=== PATIENT | female | born 1985 | race Caucasian/White ===

== ENCOUNTER 2017-03-11 16:12 | Emergency (ER) | payer BC ==
[2017-03-11 18:12] VITALS: BP 142/64
--- NOTE | 2017-03-11 18:52 | ED ---
Throat Pain/Nasal Congestion - HPI Summary HPI Summary: 31 yr old with complaint of sinus congestion, pain in maxillary sinuses, fever, chills, and has felt not well for almost three weeks. Fever just started. Her nasal drainage was yellow green. She also has pressure and pain in the ears. She also has myalgias. No other complaints. - History of Current Complaint Chief Complaint: UCGeneralIllness Time Seen by Provider: 03/11/17 18:10 - Allergies/Home Medications Allergies/Adverse Reactions: Allergies Allergy/AdvReac Type Severity Reaction Status Date / Time No Known Allergies Allergy Verified 03/11/17 18:12 Home Medications: Home Medications Acetaminophen TAB* [Tylenol TAB*] 325 mg PO Q4H PRN 03/11/17 [History Confirmed 03/11/17] PMH/Surg Hx/FS Hx/Imm Hx Previously Healthy: Yes Infectious Disease History: No Infectious Disease History: Denies: Traveled Outside the [place] in Last 30 Days - Family History Known Family History: Positive: None - Social History Occupation: Employed Full-time Alcohol Use: Weekly Substance Use Type: Reports: None Smoking Status (MU): Never Smoked Tobacco Review of Systems Positive: Fever, Chills Positive: Ear Ache, Nasal Discharge Positive: Cough. Negative: Shortness Of Breath Negative: Headache, Weakness, Paresthesia, Numbness All Other Systems Reviewed And Are Negative: Yes Physical Exam Triage Information Reviewed: Yes Vital Signs On Initial Exam: Initial Vitals Temp Pulse Resp BP Pulse Ox 101.5 F 97 16 142/64 97 03/11/17 18:08 03/11/17 18:08 03/11/17 18:08 03/11/17 18:08 03/11/17 18:08 Vital Signs Reviewed: Yes Appearance: Positive: Well-Appearing, No Pain Distress Skin: Positive: Warm, Skin Color Reflects Adequate Perfusion Head/Face: Positive: Normal Head/Face Inspection Eyes: Positive: EOMI, JOSE ENT: Positive: Pharynx normal, Nasal congestion, TMs normal, Sinus tenderness - bilateral maxillary tenderness Neck: Positive: Nontender Respiratory/Lung Sounds: Positive: Clear to Auscultation, Breath Sounds Present Cardiovascular: Positive: RRR. Negative: Murmur Abdomen Description: Positive: Nontender Musculoskeletal: Positive: Strength/ROM Intact Neurological: Positive: Sensory/Motor Intact, Alert, Oriented to Person Place, Time, CN Intact II-III, Normal Gait, Speech Normal Psychiatric: Positive: Normal - Entriken Coma Scale Best Eye Response: 4 - Spontaneous Best Motor Response: 6 - Obeys Commands Best Verbal Response: 5 - Oriented Diagnostics - Vital Signs Vital Signs Temp Pulse Resp BP Pulse Ox 03/11/17 18:08 101.5 F 97 16 142/64 97 - Laboratory Lab Results: Lab Results 03/11/17 Range/Units 18:17 Influenza A (Rapid) Negative (Negative) Influenza B (Rapid) Negative (Negative) Lab Statement: Any lab studies that have been ordered have been reviewed, and results considered in the medical decision making process. EENT Course/Dx - Course Course Of Treatment: 31 yr old with sinusitis. Flu neg. Rx with augmentin. - Diagnoses Provider Diagnoses: Sinusitis Discharge - Discharge Plan Condition: Good Disposition: HOME Prescriptions: Amoxicillin/Clavulanate TAB* [Augmentin TAB 875*] 875 mg PO BID #20 tab Patient Education Materials: Sinusitis (ED) Forms: *Work Release Referrals: Mikel Edward MD [Primary Care Provider] - 2 Days
== END 2017-03-11 18:50 | disposition home or self-care (01) ==
LOC: UCCORT 16:12
DX: J32.9 Chronic sinusitis, unspecified (principal)
CPT/HCPCS: 87502; 99212; G0463

== ENCOUNTER 2018-08-27 07:42 | Inpatient (IN) | payer BC ==
[2018-08-27] MEDS ORDERED: Misoprostol TAB* 100 MCG PO ONE (08:18)
[2018-08-27] MEDS ORDERED: Buffered Lidocaine 1% SYRIN* 1 ML/SYRINGE INTRADERM ONE (08:18)
[2018-08-27] MEDS ORDERED: Lactated Ringers 1000 ML Bag* 1,000 ML IV ONE (08:18)
--- NOTE | 2018-08-27 08:21 | HP ---
General Information - Reason for Visit Elective induction of labor - General Information Maternal Age: 33 Grav: 2 Para: 1 SAB: 0 IEA: 0 Estimated Due Date: 08/29/18 Determined By: Early Ultrasound Gestational Age in Weeks/Days: 39 5/7 Maternal Blood Type and Rh: A Negative - Results this Serology/RPR Result: Non-Reactive Rubella Result: Immune HBsAg Result: Negative HIV Result: Negative GBS Culture Result: Negative Past Medical History Delivery History: Hx Uncomplicated Vaginal Delivery Delivery History Comment: 2012 Pertinent Past Medical History: See Records Past Medical History Comment: Asthma, has rescue inhaler Pertinent Past Surgical History: None Pertinent Family History: Non-Contributory - Antepartal Records Antepartal Records: Reviewed, Complicated by: - AMA, Rh negative status, IUI Review of Systems Constitutional: Comfortable CV Complaint: No Respiratory: Shortness of Breath: No Gastrointestinal: No Nausea/Vomiting, Normal Bowel Movement Genitourinary: No Dysuria, No Bleeding, No Leaking Fluid Musculoskeletal: No Complaint, No Epigastric Pain Neurological: No Headache, No Visual Changes Movement: Normal Exam Allergies/Adverse Reactions: Allergies No Known Allergies Allergy (Verified 03/11/17 18:12) B/P: 129/66, P: 80, R: 22, T: 98.2 - Exam Breast: Breast Exam Deferred CVA: No CVA Tenderness Extremities: No Edema Heart: Normal Rhythm/Heart Sounds HEENT: No Significant Findings Lungs: Clear Bilaterally Reflexes: DTR 2+ Thyroid: No Thyromegaly - Abdominal Exam Abdomen Exam: Non-Tender, Fundal Height Consistent with Dates - Ultrasound/Biophysical Profile Ultrasound Status: Not Done Targeted Exam Findings See L&D Outpatient Visit Provider Note for Findings: N/A Estimated Weight: 9 lb by damari Cervical Exam: 1cm Effacement: 50% Station: -2 Presenting Part: Vertex Membrane Status: Intact Bleeding/Discharge: None EFM Findings - External Monitor Findings Baseline Heart Rate: 135 External Monitor Findings: Accelerations Present, No Pattern of Variable or Late Decelerations, Variability Moderate, Baseline Stable Contractions: Irregular, Mild Assessment/Plan - Assessment A: IUP at 39 5/7 weeks Category I FHR, no evidence of metabolic acidemia GBS negative Paz score: 5 P: Admit to inpatient Discussed options for ripening, elects for PO misoprostol 50 mcg Reassess in 3-4 hrs or sooner as indicated Anticipate SVB - Obstetrical Risk Factors Obstetrical Risk Factors: Assisted Reproduction - Plan Plan: Cervical Ripening, Admit - Anticipate Vaginal Delivery
[2018-08-27 09:47] LABS: Urine Benzodiazepine Screen None Detected (None Detect); Urine Opiates Screen None Detected (None Detect)
[2018-08-27] MEDS ORDERED: Misoprostol TAB* 100 MCG ONE (13:22)
--- NOTE | 2018-08-27 13:47 | PN ---
Progress Note - Progress Note Date of Service: 08/27/18 Note: S: Initially was feeling UCs with misoprostol but now they have stalled out. O: B/P: 110/60, P: 73, R: 22, T: 97.7 FHR: 130s/140s by intermittent auscultation UCs: Irregular, mild to palpation VE: FT/50/-2 A: IUP at 39 5/7 weeks No evidence of metabolic acidemia Not in labor Paz score: 5 P: Will repeat misoprostol if category I FHR Will put her baby back on monitor Reassess in 3-4 hrs or sooner as indicated
[2018-08-27] MEDS ORDERED: Dinoprostone* 10 MG VAG.SUPP VAGINAL ONE (18:10)
--- NOTE | 2018-08-27 18:14 | PN ---
Progress Note - Progress Note Date of Service: 08/27/18 Note: S: Feeling some contractions, states they are mild but she is feeling them for a longer time this dose of cytotec and they feel lower and wrap around to her lower back. O: B/P: 107/63, P: 83, R: 22, T: 98.7 FHR: 140s by intermittent aucultation UCs: q 3-5 min by palpation, mild VE: FT/50/-2 A: IUP at 39 5/7 weeks No evidence of metabolic acidemia Paz score: 5 P: PARQ discussion re: cervidil placement, pt agrees to try. She will finish her dinner and then we will get a FHR tracing prior to placement Reassess PRN Anticipate SVB
--- NOTE | 2018-08-27 19:25 | PN ---
Progress Note - Progress Note Date of Service: 08/27/18 Note: Quick note: FHR 130, moderate variability, + accelerations, no decelerations. UCs q 2-4 min, very mild to palpation. Category I FHR, no evidence of metabolic acidemia. Cervidil placed.
[2018-08-27] MEDS ORDERED: Nalbuphine* 10 MG/ML 1 ML VIAL IV ONE (20:00)
[2018-08-27] MEDS ORDERED: Promethazine INJ(RESTRICTED)* 25 MG/ML 1 ML VIAL IV ONE (20:00)
--- NOTE | 2018-08-28 08:21 | PN ---
Progress Note - Progress Note Date of Service: 08/28/18 Note: Pt reports increasingly uncomfortable ctx. Still coping well. Cervical exam 1-2 cm/ 80%/ posterior/ vtx. FHR Category I. After discussing options, risks and benefits, counseled I recommend starting trial of Pitocin. Pt very much in agreement with plan. Will initiate Pitocin after pt finishes breakfast.
[2018-08-28] MEDS: Lactated Ringers 1000 ML Bag* 1,000 ML IV SCH ×2 (09:04→17:32)
[2018-08-28] MEDS: Oxytocin in LR* 20 UNITS/1,000 ML BAG IVPB SCH ×2 (09:06→20:30)
[2018-08-28 09:09] LABS: Hematocrit 37 % (35-47); Hemoglobin 12.9 g/dL (12.0-16.0); Mean Corpuscular HGB Conc 35 g/dL (31-36); Mean Corpuscular Hemoglobin 32 pg (27-31); Mean Corpuscular Volume 89 fL (80-97); Mean Platelet Volume 8.7 fL (7.4-10.4); Platelet Count 222 10^3/uL (150-450); Red Cell Distribution Width 14 % (10-15); White Blood Count 12.6 10^3/uL (3.5-10.8)
[2018-08-28 09:14] LABS: ABS Eosinophils 0.1 10^3/ul (0-0.6); ABS Lymphocytes 2.7 10^3/ul (1.0-4.8); ABS Monocytes 0.5 10^3/ul (0-0.8); ABS Neutrophils 9.2 10^3/ul (1.5-7.7); Eosinophil % 0.8 %; Lymphocyte % 21.8 %
--- NOTE | 2018-08-28 09:54 | PN ---
Progress Note - Progress Note Date of Service: 08/28/18 SOAP: Subjective: Pt reports ctx increasing in intensity, coping well. Objective: Pitocin at 4 mu/ min FHR: baseline 125, moderate variability, + accels, no decels UCs: Q 2-4 minutes, mild to moderate, 40 seconds duration Cervical exam deferred Assessment: 33 year old at 39 6/7 weeks gestation undergoing elective IOL, beginning to get into labor, no evidence of acidemia, membranes intact. Plan: Continue Pitocin induction. Consider AROM when able. Epidural when needed. Anticipate .
--- NOTE | 2018-08-28 11:28 | PN ---
Progress Note - Progress Note Date of Service: 08/28/18 SOAP: Subjective: Pt feeling ctx a bit more, also feeling somewhat nauseous. Coping well. Objective: Pitocin at 6 mu/min FHR: Baseline 120, moderate variability, + accels, no decels Ctx: Q 2-3 minutes, mild to moderate, 40 seconds duration Membranes intact Assessment: Pt appears to be continuing to progress into active labor. No evidence of acidemia. Membranes intact. Plan: Continue Pitocin induction. Will recheck cervix when pt feels ready for epidural or in a few hours.
[2018-08-28] MEDS ORDERED: Nalbuphine* 10 MG/ML 1 ML VIAL IV ONE (13:26)
[2018-08-28] MEDS ORDERED: Promethazine INJ(RESTRICTED)* 25 MG/ML 1 ML VIAL IV ONE (13:27)
--- NOTE | 2018-08-28 13:37 | PN ---
Progress Note - Progress Note Date of Service: 08/28/18 SOAP: Subjective: Pt more uncomfortable, requests cervical exam, would like something to help with the pain. Objective: Cervix: 1-2 cm/ 80%/ -1/ vtx FHR: baseline 125, moderate variability, + accels, no decels UCs: 2-4 minutes, mild to moderate Assessment: Minimal cervical change. No evidence of acidemia. Plan: Pt counseled ideally not a good time for epidural, as she is not yet in active labor. Offered other options, including hydrotherapy, position changes, IV pain meds, nitrous oxide. Pt would like to try IV pain meds. Order placed for Nubain and Phenergan. Will reevaluate labor progress in a few hours or as needed.
--- NOTE | 2018-08-28 16:56 | PN ---
Progress Note - Progress Note Date of Service: 08/28/18 SOAP: Subjective: Pt continues to feel ctx, still dozing intermittently following administration of nubain and phenergan. Coping well. Objective: Cervix: 2-3 cm/ 80%/ 0 station FHR: Baseline 125, moderate variability, no accels, no decels UCs: 2-5 minutes, mild to moderate Membranes intact Pitocin at 16 mu/min Assessment: Making some progress, still not in active labor. No evidence of acidemia, FHR tracing is reflective of nubain/ phenergan administration. Plan: Continue Pitocin induction. Attempt AROM when feasible. Epidural when needed and pt in active labor.
[2018-08-28] MEDS ORDERED: OBEPIDURAL* 250 ML EPIDURAL ONE (17:50)
--- NOTE | 2018-08-28 18:12 | PN ---
Progress Note - Progress Note Date of Service: 08/28/18 SOAP: Subjective: Pt reports SROM to clear fluid. Now feeling much more uncomfortable with ctx, requests epidural. Objective: Cervix: 3cm/ 90%/ 0 station/ vtx Clear fluid FHR: Baseline 130, moderate variability, + accels, no decels UCs: 2-4 minutes Assessment: Pt in active labor, ruptured, no evidence of acidemia or chorioamnionitis. Plan: Anesthesia called for labor epidural. Continue Pitocin induction. Anticipate .
[2018-08-28] MEDS ORDERED: Bupivacaine 0.25% SDV PF* 10 ML VIAL INJ ONE (18:50)
[2018-08-28] MEDS ORDERED: Famotidine TAB* 20 MG PO PRN (19:14)
[2018-08-28] MEDS ORDERED: Lactated Ringers 1000 ML Bag* 500 ML IV PRN ×2 (19:14)
[2018-08-28] MEDS ORDERED: Phenylephrine 40 MCG/ML SYRINGE IV PUSH PRN ×2 (19:14)
[2018-08-28] MEDS ORDERED: Sodium Citrate/Citric Acid* 15 ML UDC PO PRN (19:14)
[2018-08-28] MEDS ORDERED: Lactated Ringers 1000 ML Bag* 1,000 ML IV ONE (19:14)
--- NOTE | 2018-08-28 19:41 | PN ---
Progress Note - Progress Note Date of Service: 08/28/18 SOAP: Subjective: Pt comfortable s/p epidural placement. Dozing in bed. Does not feel ctx. Objective: Cervical exam deferred Pitocin at 14 mu/min FHR: Baseline 140, moderate variability, + accels, early decels UCs: 2-3 minutes BP: 107/68, Temp: 97.8 Fluid clear Assessment: Pt appears to be making progress, comfortable with epidural. No evidence of acidemia or chorioamnionitis. Plan: Will recheck when pt feels increased pressure/ urge to push or in a few hours. Continue Pitocin induction. Encourage frequent position changes and rest. Anticipate .
[2018-08-28] MEDS ORDERED: OBEPIDURAL* 250 ML EPIDURAL SCH (20:00)
[2018-08-28] MEDS ORDERED: Lactated Ringers 1000 ML Bag* 1,000 ML IV SCH ×2 (20:00→23:00)
--- NOTE | 2018-08-28 21:32 | PROCNOTE ---
[facility] OB: Delivery Note - Delivery A Date of : 08/28/18 Time of : 20:26 [place] Sex: Female Weight at : 3.695 kg Score 1 Minute: 8 Score 5 Minutes: 9 Gestational Age in Weeks and Days at Delivery: 39 Weeks and 6 Days Delivery Method: Spontaneous Vaginal Labor: Spontaneous Did Patient attempt ?: N/A, No Previous Amniotic Fluid: Clear Estimated Blood Loss: 500 Anesthesia/Analgesia: CEI for Labor Delivered By: Silke Murillo - Nursery Level of Nursery: Regular/Bedside - Perineum Perineal Injury: 2nd Degree Perineal Injury Comment: 2nd degree perineal Perineal Repair: By Delivering Practioner - Events Delivery Events of Note: Pitocin During Labor Delivery Events of Note Comment: CAN x 1 - Additional Delivery Notes Additional Delivery Notes: Pt admitted to L&D for elective term IOL. Cervical ripening done with misoprostol and Cervidil. This morning Pitocin induction initiated. Pt eventually progressed into active labor and experienced SROM to clear fluid. Soon after she requested and received an epidural for pain relief with good effect. Pt eventually reported increased pressure and was found to be fully dilated. Pt coached on pushing, and pushed with good effort and steady descent. As baby reached FHR decreased to high 60's, at which time special care nurse called and preparations made for episiotomy; however, pt successfully birthed the baby with the next contraction. Shoulders followed head without difficulty and a loose nuchal cord was easily reduced. Infant cried immediately and was placed on maternal abdomen. Tone was initially poor, but improved as dried and stimulated. After cord pulsation ceased cord clamped x2 and cut by 's father. Placenta delivered spontaneously with gentle cord traction, noted to have velamentous insertion. Placenta followed by large gush of blood, after which time bleeding was minimal. Examination of the perineum revealed small second degree laceration at the site of prior episiotomy. Repair performed with absorbable sutures resulting in good hemostasis and tissue approximation. Mother and , in stable condition at this time. Anticipate normal course.
[2018-08-28] MEDS ORDERED: Witch Hazel PAD* JAR ONE (22:04)
[2018-08-28] MEDS ORDERED: Glycerin ADULT SUPP PR PRN (22:30)
[2018-08-28] MEDS ORDERED: Acetaminophen TAB* 325 MG PO PRN (22:30)
[2018-08-28] MEDS ORDERED: Witch Hazel PAD* JAR TOPICAL PRN (22:30)
[2018-08-28] MEDS ORDERED: Dibucaine 1% 28.35 GM TUBE PR PRN (22:30)
[2018-08-28] MEDS ORDERED: Oxytocin in LR* 20 UNITS/1,000 ML BAG IVPB SCH (23:00)
[2018-08-28] MEDS ORDERED: Lidocaine 1% INJ* 10 MG/ML 30 ML SDV ONE (23:09)
[2018-08-29 05:56] LABS: Hematocrit 30 % (35-47); Hemoglobin 10.5 g/dL (12.0-16.0); Mean Corpuscular HGB Conc 35 g/dL (31-36); Mean Corpuscular Hemoglobin 32 pg (27-31); Mean Corpuscular Volume 89 fL (80-97); Mean Platelet Volume 8.4 fL (7.4-10.4); Platelet Count 184 10^3/uL (150-450); Red Blood Count 3.34 10^6 /uL (3.70-4.87); Red Cell Distribution Width 14 % (10-15); White Blood Count 13.5 10^3/uL (3.5-10.8)
[2018-08-29 07:01] LABS: ABS Eosinophils 0.1 10^3/ul (0-0.6); ABS Lymphocytes 3.1 10^3/ul (1.0-4.8); ABS Monocytes 0.8 10^3/ul (0-0.8); ABS Neutrophils 9.5 10^3/ul (1.5-7.7); Eosinophil % 0.6 %; Lymphocyte % 22.8 %
[2018-08-29] MEDS: Docusate CAP* 100 MG PO SCH ×3 (08:14→20:22)
[2018-08-29] MEDS: Ibuprofen TAB* 600 MG PO PRN ×3 (08:14→20:22)
[2018-08-29] MEDS ORDERED: Ferrous Gluconate TAB* 324 MG TAB PO SCH (09:00)
[2018-08-29] MEDS ORDERED: RHO D Immune Globulin (HUMAN)* 300 MCG = 1,500 I.U. INJ IM ONE (13:03)
[2018-08-30] MEDS: Ibuprofen TAB* 600 MG PO PRN (05:41)
[2018-08-30 08:22] VITALS: BP 120/68
[2018-08-30] MEDS: Docusate CAP* 100 MG PO SCH (09:14)
== END 2018-08-30 11:42 | disposition home or self-care (01) | DRG 560 ==
LOC: MCHOBOUT 07:42 → MCHOB 09:28
PROVIDERS: ADMIT Midwife; ATTEND Midwife
PROC: 10E0XZZ Delivery of Products of Conception, External Approach (ICD-10-PCS; principal; 2018-08-28)
PROC: 3E033VJ Introduction of Other Hormone into Peripheral Vein, Percutaneous Approach (ICD-10-PCS; 2018-08-28)
PROC: 0KQM0ZZ Repair Perineum Muscle, Open Approach (ICD-10-PCS; 2018-08-28)
DX: O99.52 Diseases of the respiratory system complicating childbirth (principal); Z37.0 Single live birth; O70.1 Second degree perineal laceration during delivery; O69.81X0 Labor and delivery complicated by cord around neck, without compression, not applicable or unspecified; J45.909 Unspecified asthma, uncomplicated; Z3A.39 39 weeks gestation of pregnancy
CPT/HCPCS: 36415; 80307; 85025; 85461; 86850; 86870; 86880; 86900; 86901; A9270-GY; J2300; J2550; J2790; J3490; S0191